=== PATIENT | male | born 1995 | race American Indian/Alaskan Native ===

== ENCOUNTER 2018-10-24 16:29 | Emergency (ER) | payer OTHER ==
--- NOTE | 2018-10-24 16:40 | Emergency Department Report ---
Blank Doc - Documentation Documentation: This is a 23-year-old male that presents with right hip pain This initial assessment/diagnostic orders/clinical plan/treatment(s) is/are subject to change based on patient's health status, clinical progression and re- assessment by fellow clinical providers in the ED. Further treatment and workup at subsequent clinical providers discretion. Patient/guardians urged not to elope from the ED as their condition may be serious if not clinically assessed and managed. Initial orders include: 1- Patient sent to [facility] for further evaluation and treatment 2- xray
[2018-10-24 16:45] VITALS: BP 128/71
--- NOTE | 2018-10-24 17:24 | XRay Report ---
RIGHT HIP 3 VIEWS. INDICATION / CLINICAL INFORMATION: hip pain COMPARISON: None available. FINDINGS: BONES / JOINT(S): Previous fixation of the mid femur fracture with an intramedullary bartolo and 2 proxim al screws. The fracture is well-healed. Just superior and medial to the fracture site is a benign-paola earing bony exostosis. No significant arthritis. SOFT TISSUES: No significant abnormality. ADDITIONAL FINDINGS: None. Signer Name: Mauricio Lomeli MD Signed: 10/24/2018 5:19 PM Workstation Name: [id number]
[2018-10-24] MEDS ORDERED: TYLENOL PO ONE (20:11)
[2018-10-24] MEDS ORDERED: IBUPROFEN PO ONE (20:11)
--- NOTE | 2018-10-24 20:23 | Emergency Department Report ---
ED Extremity Problem HPI - General Chief complaint: Extremity Problem,Nontraumatic Stated complaint: RT LEG PAIN (CRYSTAL) Time Seen by Provider: 10/24/18 16:39 Source: patient Mode of arrival: Ambulatory Limitations: No Limitations - History of Present Illness Initial comments: Patient is a 23-year-old -[place] male with a history of chronic right hip pain and right thigh pain from an old right hip and femur injury status post ORIF surgery presents to the ED with acute exacerbation of his right hip and thigh pain for the last 1 week. Patient states that in the last 2 weeks he has been involved in more strenuous physical activity and heavy lifting and suspects that the patient may have resulted from the intense physical activity. Patient denies fall, traumatic injury, nausea, vomiting, numbness and tingling or weakness of the right leg, low back pain, dizziness, hematuria, testicular pain or dysuria. MD Complaint: extremity pain (right thigh and leg), joint paint (right hip pain) -: Sudden, week(s) (1) Location: right, lower extremity (hip and thigh) History of Same: Yes -: Yes arthralgia, No fever, No associated dyspnea, No associated chest pain Radiation: proximal Severity scale (0 -10): 6 Quality: aching, sharp, constant Consistency: constant Improves with: nothing Worsens with: weight bearing, walking, exertion, palpation Associated Symptoms: denies other symptoms, arthralgias - Related Data Previous Rx's Medication Instructions Recorded Last Taken Type Cyclobenzaprine [Flexeril] 10 mg PO TID PRN #15 tablet 10/24/18 Unknown Rx Ibuprofen [Motrin] 600 mg PO Q8H PRN #24 tablet 10/24/18 Unknown Rx Allergies Allergy/AdvReac Type Severity Reaction Status Date / Time No Known Allergies Allergy Verified 10/24/18 16:44 ED Review of Systems ROS: Stated complaint: RT LEG PAIN (CRYSTAL) Other details as noted in HPI Constitutional: denies: chills, fever Eyes: denies: eye pain, eye discharge, vision change ENT: denies: ear pain, throat pain Respiratory: denies: cough, shortness of breath, wheezing Cardiovascular: denies: chest pain, palpitations Endocrine: no symptoms reported Gastrointestinal: denies: abdominal pain, nausea, diarrhea Genitourinary: denies: urgency, dysuria Musculoskeletal: arthralgia (right thigh and leg pain), myalgia. denies: back pain, joint swelling Skin: denies: rash, lesions Neurological: denies: headache, weakness, paresthesias Psychiatric: denies: anxiety, depression Hematological/Lymphatic: denies: easy bleeding, easy bruising ED Past Medical Hx - Past Medical History Previous Medical History?: No - Surgical History Past Surgical History?: Yes Additional Surgical History: right leg surgery with crystal placement - Social History Smoking Status: Current Some Day Smoker Substance Use Type: Marijuana - Medications Home Medications: Home Medications Medication Instructions Recorded Confirmed Last Taken Type Cyclobenzaprine [Flexeril] 10 mg PO TID PRN #15 tablet 10/24/18 Unknown Rx Ibuprofen [Motrin] 600 mg PO Q8H PRN #24 tablet 10/24/18 Unknown Rx ED Physical Exam - General Limitations: No Limitations General appearance: alert, in no apparent distress - Head Head exam: Present: atraumatic, normocephalic, normal inspection - Eye Eye exam: Present: normal appearance, PERRL, EOMI. Absent: scleral icterus, conjunctival injection, nystagmus Pupils: Present: normal accommodation - ENT ENT exam: Present: normal exam, normal orophraynx, mucous membranes moist, TM's normal bilaterally, normal external ear exam - Neck Neck exam: Present: normal inspection, full ROM - Respiratory Respiratory exam: Present: normal lung sounds bilaterally. Absent: respiratory distress, wheezes, rales, rhonchi, stridor, chest wall tenderness, accessory muscle use, decreased breath sounds - Cardiovascular Cardiovascular Exam: Present: regular rate, normal rhythm, normal heart sounds. Absent: systolic murmur, diastolic murmur, rubs, gallop - GI/Abdominal GI/Abdominal exam: Present: soft, normal bowel sounds. Absent: tenderness, guarding, hyperactive bowel sounds, hypoactive bowel sounds, organomegaly, mass - Rectal Rectal exam: Present: deferred - Extremities Exam Extremities exam: Present: normal inspection, full ROM, tenderness (right thigh and hip tenderness), normal capillary refill. Absent: pedal edema, joint swelling, calf tenderness - Back Exam Back exam: Present: normal inspection, full ROM. Absent: tenderness, CVA tenderness (R), CVA tenderness (L), muscle spasm, paraspinal tenderness, vertebral tenderness - Neurological Exam Neurological exam: Present: alert, oriented X3, CN II-XII intact, normal gait, reflexes normal - Psychiatric Psychiatric exam: Present: normal affect, normal mood - Skin Skin exam: Present: warm, dry, intact, normal color. Absent: rash ED Course Vital Signs 10/24/18 16:40 Temperature 98.4 F Pulse Rate 64 Blood Pressure 128/71 O2 Sat by Pulse 100 Oximetry - Reevaluation(s) Reevaluation #1: 10/24/18 20:22 This is a 23-year-old male with a history of chronic right leg pain due to a previous right femur surgery who presented to the ED with acute exacerbation of his chronic right leg pain for one week. In the ED, patient is alert and oriented 3 and is not in distress. Patient was treated and in the ED and write femur x-ray shows a previous fixation of the mid femur fracture with an intramedullary crystal and 2 proximal screws. The fracture is well-healed. Just superior and medial to the fracture site is a benign-appearing bony exostosis. No significant arthritis. On reevaluation, patient's pain is well controlled, patient is ambulatory in the ED and does not appear to be in any distress. Patient was discharged home on pain medications and advised to follow-up with his primary care physician in 7-10 days for reevaluation or return to the ED immediately if symptoms get worse. ED Medical Decision Making - Radiology Data Radiology results: report reviewed, image reviewed Findings [facility] [address] [place] [address] XRay Report Signed Patient: BOLIVAR HARRIS MR#: [id number] 9 : 1995 Acct:[id number] Age/Sex: 23 / M ADM Date: 10/24/18 Loc: ED Attending Dr: Ordering Physician: PRAVEEN DELEON NP Date of Service: 10/24/18 Procedure(s): XR hip 2-3V RT Accession Number(s): [id number] cc: PRAVEEN DELEON NP Fluoro Time In Minutes: RIGHT HIP 3 VIEWS. INDICATION / CLINICAL INFORMATION: hip pain COMPARISON: None available. FINDINGS: BONES / JOINT(S): Previous fixation of the mid femur fracture with an intramedullary crystal and 2 proximal screws. The fracture is well-healed. Just superior and medial to the fracture site is a benign-appearing bony exostosis. No significant arthritis. SOFT TISSUES: No significant abnormality. ADDITIONAL FINDINGS: None. Signer Name: Mauricio Lomeli MD Signed: 10/24/2018 5:19 PM Workstation Name: [id number] Transcribed By: ANGELINA Dictated By: Mauricio Lomeli MD Electronically Authenticated By: Mauricio Lomeli MD Signed Date/Time: 10/24/18 7189 - Medical Decision Making This is a 23-year-old male with a history of chronic right leg pain due to a previous right femur surgery who presented to the ED with acute exacerbation of his chronic right leg pain for one week. In the ED, patient is alert and oriented 3 and is not in distress. Patient was treated and in the ED and write femur x-ray shows a previous fixation of the mid femur fracture with an intramedullary crystal and 2 proximal screws. The fracture is well-healed. Just superior and medial to the fracture site is a benign-appearing bony exostosis. No significant arthritis. On reevaluation, patient's pain is well controlled, patient is ambulatory in the ED and does not appear to be in any distress. Patient was discharged home on pain medications and advised to follow-up with his primary care physician in 7-10 days for reevaluation or return to the ED immediately if symptoms get worse. - Differential Diagnosis chronic right leg pain; muscle strain, right hip bursitis Critical care attestation.: If time is entered above; I have spent that time in minutes in the direct care of this critically ill patient, excluding procedure time. ED Disposition Clinical Impression: Chronic pain of right lower extremity Muscle strain of right lower extremity Qualifiers: Encounter type: initial encounter Qualified Code(s): S86.911A - Strain of unspecified muscle(s) and tendon(s) at lower leg level, right leg, initial encounter Disposition: - TO HOME OR SELFCARE Is pt being admited?: No Does the pt Need Aspirin: No Condition: Stable Instructions: Muscle Strain (ED), Arthralgia (ED) Additional Instructions: Take medications with food, drink plenty of fluids and follow-up with your primary care physician in 7-10 days for reevaluation. Return to the ED immediately if symptoms get worse. Prescriptions: Cyclobenzaprine [Flexeril] 10 mg PO TID PRN #15 tablet PRN Reason: Muscle Spasm Ibuprofen [Motrin] 600 mg PO Q8H PRN #24 tablet PRN Reason: Pain Referrals: GAY DEL VALLE MD [Primary Care Provider] - 3-5 Days Time of Disposition: 20:20 Print Language: FAROESE
== END 2018-10-24 20:45 | disposition home or self-care (01) ==
LOC: ED 16:29
DX: S86.911A Strain of unspecified muscle(s) and tendon(s) at lower leg level, right leg, initial encounter (principal); F17.200 Nicotine dependence, unspecified, uncomplicated; F12.10 Cannabis abuse, uncomplicated; Z79.899 Other long term (current) drug therapy; X50.0XXA Overexertion from strenuous movement or load, initial encounter; Y93.89 Activity, other specified; Y92.89 Other specified places as the place of occurrence of the external cause; Y99.8 Other external cause status